=== PATIENT | female | born 1955 | race Two or more races ===

== ENCOUNTER 2021-05-29 06:37 | Day surgery (SDC) | payer OTHER ==
[~2021-05-29 06:37] MED LIST: ADULT LOW DOSE81 M1 PO; AVALIDE 300-121 EACH PO; CRESTOR20 MG PO; JANUMET XR 1001 EACH PO; LANTUS; SYNTHROID88 MCG PO; ZIAC 5-6.25 MG1 EACH PO
== END 2021-05-29 16:55 | disposition home or self-care (01) ==
LOC: CIR.AMB 06:37 → EDBD 09:00 → CIR.AMB 09:00
PROVIDERS: ATTEND Surgery
DX: C50.412 Malignant neoplasm of upper-outer quadrant of left female breast (principal)